=== PATIENT | male | born 1940 | race Caucasian/White ===

== ENCOUNTER 2020-10-02 14:37 | Emergency (ER) | payer MEDICARE ==
[~2020-10-02 14:37] MED LIST: ACETAMINOPHEN325 MG PO; AMARYL2 MG PO; AMARYL4 MG PO; ASPIRIN CHEWABL81 MG PO; FEOSOL45 MG PO; FLOMAX0.4 MG PO; INVOKANA300 MG PO; LOPRESSOR50 MG PO; LOSARTAN-HCTZ1 EAC1 PO; LOVASTATIN20 MG PO; METFORMIN HCL1000 MG PO; MIRALAX17 GM PO; NITROQUIK SL0.4 MG SL; NORVASC5 MG PO; PLAVIX75 MG PO
[2020-10-02 16:54] LABS: BASOPHIL 0.2 % (0-2); EOSINOPHIL 0.3 % (0-7); HCT 39.8 % (42.0-52.0); HGB 13.8 g/dl (13.2-18.0); LYMPHOCYTE 7.3 % (15-48); MCH 30.5 pg (25.0-31.0); MCHC 34.7 g/dL (32.0-36.0); MCV 87.9 fL (78.0-100.0); MONOCYTE 11.4 % (0-12); MPV 10.4 fL (6.0-9.5); NEUTROPHIL 80.2 % (41-80); NRBC 0; PLT 198 K/uL (150-400); RBC 4.53 M/uL (4.70-6.00); RDW 14.3 % (11.5-14.0)
[2020-10-02 17:04] LABS: INR 2.02 (0.9-1.2)
[2020-10-02 17:52] LABS: LACTIC ACID 1.3 mmol/L (0.4-1.9)
[2020-10-02 18:02] LABS: ALBUMIN 3.6 g/dL (3.4-5.0); BILIRUBIN - TOTAL 1.2 mg/dL (0.2-1.0); CREATININE 3.99 mg/dL (0.67-1.17); GLOBULIN (CALCULATION) 4.1 g/dL; MAGNESIUM 2.4 mg/dL (1.8-2.4); PHOSPHORUS 5.4 mg/dL (2.6-4.7); TOTAL PROTEIN 7.7 g/dL (6.4-8.2)
[2020-10-02 18:04] LABS: POTASSIUM 1.9 mmol/L (3.5-5.1)
[2020-10-02 18:21] LABS: BILIRUBIN NEGATIVE (NEGATIVE); BLOOD TRACE-INTACT Ery/uL (NEGATIVE); CLARITY CLEAR (CLEAR); COLOR YELLOW (YELLOW); GLUCOSE (U) TRACE mg/dL (NORMAL); LEUKOCYTES NEGATIVE Leu/uL (NEGATIVE); NITRITE NEGATIVE (NEGATIVE); PROTEIN 2+ mg/dL (NEGATIVE); SPECIFIC GRAVITY 1.015 (1.001-1.030); UROBILINOGEN 0.2 mg/dL (0.2-1.0); pH 6.5 (5.0-9.0)
[2020-10-02 18:37] LABS: BACTERIA TRACE; SQUAMOUS EPITHELIAL CELLS RARE
== END 2020-10-02 20:50 | disposition other institution (70) ==
LOC: FER 14:37
PROVIDERS: Emergency Medicine
DX: S00.81XA Abrasion of other part of head, initial encounter (principal); E87.1 Hypo-osmolality and hyponatremia; E87.6 Hypokalemia; I21.4 Non-ST elevation (NSTEMI) myocardial infarction; I48.91 Unspecified atrial fibrillation; I12.0 Hypertensive chronic kidney disease with stage 5 chronic kidney disease or end stage renal disease; E11.22 Type 2 diabetes mellitus with diabetic chronic kidney disease; N18.6 End stage renal disease; Z79.01 Long term (current) use of anticoagulants; Z88.5 Allergy status to narcotic agent; Z88.0 Allergy status to penicillin; W18.30XA Fall on same level, unspecified, initial encounter
CPT/HCPCS: 36415; 70450; 71250; 73140; 80053; 81001; 83605; 83735; 84100; 84145; 84484; 85025; 85610; 93005; J3480; J7030